=== PATIENT | female | born 1990 | race Caucasian/White ===

== ENCOUNTER 2025-08-08 17:10 | Emergency (ER) | payer BC, SELFPAY ==
[2025-08-08 17:14] VITALS: BP 115/78
[2025-08-08] MEDS: DELTASONE 40 MG PO (20:08)
--- NOTE | 2025-08-08 23:02 | ED.MUSCINJ ---
HPI-Injury
General
Chief Complaint: Musculo-Skeletal Complaint
Source: patient
Exam Limitations: none
Time Seen by Provider: 08/08/25 19:33
Nursing documentation reviewed up to this point in time: agreed with
History of Present Illness-Injury
Is this injury a work related problem?: No
Is pt an associate of [facility]?: No
Initial Injury comments:
Patient to ED wtih report of worsening pain to left shoulder. SHe has a history of left shoulder pain.No new trauma. No redness, swelling or bruising. Brought self to ED for eval,
Past History
Past History
ED Past Medical History: None; Negative Asthma, HTN, Hypercholesterolemia or NIDDM
ED Past Surgical History: Cholecystectomy
Social History
Tobacco: Former smoker
Alcohol: None
Personal: Single
Living: with family
Review of Systems
Review of Systems
Allergies reviewed?: Yes
All Other Systems: ROS reviewed and negative except as documented in HPI and ROS
Constitutional: Reports no symptoms
EENT: Reports no symptoms
Respiratory: Reports no symptoms
Cardiac: Reports no symptoms
ABD/GI: Reports no symptoms
: Reports no symptoms
Musculoskeletal: Reports joint pain (left shoulder pain)
Skin: Reports no symptoms
Neurological: Reports no symptoms
Psychiatric: Reports no symptoms
Musculoskeletal Injury Exam
Musculoskeletal Injury Exam
Left Shoulder:
Pain with Movement?: Moderate
Tender to palpation?: Moderate
Soft tissue swelling?: None
External deformity and angulation?: None
Joint effusion?: None
Contusion?: None
Hematoma-local bleeding into tissue?: None
Strain- Sprain- Tear (Connective tissue injury)?: Moderate
Crepitus with movement?: No
Joint instability?: No
Malalignment/deformity?: No
Range of motion: Limited
Distal skin color and temperature: normal-warm & good color
Capillary Refill: normal
Normal distal neurovascular exam?: Yes
Peripheral Pulses: radial (left): 3+
Phy Exam
General Physical Exam
General Presentation: well appearing and mild distress
General age: appears stated age
General Skin: warm and dry
General Habitus: normal
General Mental: alert
Musculoskeletal Exam
Musculoskeletal Exam: neuro vasc intact
Skin Exam
Skin Exam: normal color, warm/dry and no rash
Psychiatric Exam
Psychiatric Exam: normal mood/affect
Injury Course
Orders/Labs/Results
Orders:
Orders
08/08/25 19:47
Prednisone [Deltasone] 40 mg PO NOW STA
*Radiology
Radiology exam reviewed: radiology read reviewed
*Pulse Oximetry
SaO2: 100
Oxygen Mode of Delivery: Room air
Patient hypoxic: no
*Critical Care Note
Total Time (30-74mins, 75-104mins- exclusive of procedures): Not Applicable
Update Note
Update Note:
Patient to ED wtih report of left shoulder pain. Has had prior injuries to this shoulder. No new trauma. VSS, she remains afebrile. No redness or swelling to her shoullder. Neurovasc. intact. Limited ROM due to pain. Will discharge home. She
will continue ice, ibuprofent. Recommend follow upw [facility] orthoped[facility]. Given number for contact. Given instructions on s/s to return to ED and she is agreeable to plan.
ED Attending Note
-
Portions of this chart may have been created with voice recognition software.� Occasional wrong word or��sound alike� substitutions may have occurred due to the inherent limitations of voice recognition software.
Discharge Plan
Departure
Patient Disposition: Home (Routine Discharge)
Date of Disposition: 08/08/25
Time of Disposition: 19:47
Patient with high blood pressure during this ER visit?: No
Condition: Good
Covid-19: Not Applicable
Discharge Problem:
Acute shoulder pain
Instructions: Using Cold for Pain, Shoulder pain - ED (DC)
Prescriptions:
New
prednisone 10 mg Tablet
See Rx Instructions .ROUTE .COMPLEX Qty: 30 0RF
Rx Instructions:
Take By Mouth:
40 mg daily x3 days, 30 mg daily x3 days,
20 mg daily x3 days, 10 mg daily x3 days.
No Action
cholecalciferol (vitamin D3) 1,000 UNITS tablet
5,000 units PO DAILY
Multivitamin
1 tab PO DAILY
acetaminophen [Tylenol Extra Strength] 500 MG tablet
500 mg PO Q4HPRN PRN (Reason: pain)
Loratadine
1 tab PO DAILY PRN (Reason: allergies)
tramadol 50 MG tablet
50 mg PO Q6HPRN PRN (Reason: severe pain/breakthrough pain) Qty: 10 0RF
ibuprofen 200 MG tablet
400 - 600 mg PO Q6HPRN PRN (Reason: moderate pain) Qty: 1 0RF
ondansetron 4 MG tablet,disintegrating
4 mg PO Q8HPRN PRN (Reason: Nausea/Vomiting) Qty: 10 0RF
Referrals:
Kadi Stanley DO [Family Provider, Family Practice]
Activity Restrictions/Additional Instructions:
Follow up with orthopedist as discussed. Call in the AM to see if you can move up your appointment.
Interventions
Interventions:
*Risk Screen - Suicide Last Done: 08/08/25 17:14
*General Assessment Last Done: 08/08/25 17:14
*Neglect/Abuse Screening Last Done: 08/08/25 17:14
*ED- Fall Risk Assessment Last Done: 08/08/25 20:14
*Nursing Disposition Last Done: 08/08/25 20:14
ED-Musculoskeletal Assessment Last Done: 08/08/25 20:00
Discharge Date and Time
Discharge Date/Time: 08/08/25 20:14
Print Language: CZECH
== END 2025-08-08 20:14 | disposition home or self-care (01) ==
LOC: EMR 17:10
PROVIDERS: EMERGENCY PHYSICIAN Emergency Medicine; FAMILY PHYSICIAN Family Medicine
DX: M25.512 Pain in left shoulder (principal); Z87.891 Personal history of nicotine dependence
CPT/HCPCS: 99283